=== PATIENT | female | born 1990 | race Two or more races ===

== ENCOUNTER 2023-03-16 03:13 | Inpatient (IN) | payer MEDICAID ==
[~2023-03-16] VITALS: Ht 154.9 cm; Wt 102.2 kg
[2023-03-16] MEDS: ONDANSETRON HCL 4 MG/2 ML VIAL IVP ONE ×2 (03:30→04:13)
[2023-03-16] MEDS ORDERED: SODIUM CHLORIDE 0.9% 1,000 ML IV ONE (03:30)
[2023-03-16 03:35] LABS: BASOPHILS % (AUTO) 0.6 % (0.0-2.0); EOSINOPHILS % (AUTO) 3.7 % (1.0-6.0); HEMATOCRIT 39.2 % (36-46); HEMOGLOBIN 13.1 g/dL (12.0-16.0); LYMPHOCYTES % (AUTO) 20.5 % (22.0-44.0); MEAN CORPUSCULAR HEMOGLOBIN 27.6 pg (26.0-34.0); MEAN CORPUSCULAR HGB CONC 33.5 G/dL (31.0-37.0); MEAN CORPUSCULAR VOLUME 83 fL (80-100); MONOCYTES % (AUTO) 9.8 % (2.0-9.0); NEUTROPHILS # (AUTO) 6.4 K/uL (1.8-7.7); NEUTROPHILS % (AUTO) 65.4 % (40.0-70.0); PLATELET COUNT (AUTO) 371 K/uL (150-450); RED BLOOD CELL COUNT(AUTO) 4.75 MIL/uL (4.00-5.20); RED CELL DISTRIBUTION WIDTH 14.7 % (11.5-14.5); WHITE BLOOD COUNT (AUTO) 9.9 K/uL (4.5-11.0)
[2023-03-16 03:41] LABS: ANION GAP 13 mmol/L (8-16); CALCIUM, TOTAL 8.8 mg/dL (8.8-10.5); CARBON DIOXIDE 24 mmol/L (22-29); CHLORIDE 103 mmol/L (98-107); CREATININE 0.77 mg/dL (0.60-1.30); GLOMERULAR FILTR. RATE CALC > 60 mL/min (>60); GLUCOSE,RANDOM 75 mg/dL (70-110); POTASSIUM 3.3 mmol/L (3.5-5.1); SODIUM SERUM 140 mmol/L (136-145); UREA NITROGEN, BLOOD 11 mg/dL (7-18)
[2023-03-16 03:46] LABS: ALCOHOL, BLOOD (SERUM) 52 mg/dL (0-10); INR 1.1 (0.9-1.1); PROTHROMBIN TIME 11.3 SEC (9.4-11.6)
[2023-03-16 03:48] LABS: LACTIC ACID 1.9 mmol/L (0.4-2.0); TROPONIN I-HIGH SENSITIVITY 5 ng/L (<51)
[2023-03-16 03:54] LABS: SALICYLATE 1.3 mg/dL (2.8-20.0)
[2023-03-16 04:00] LABS: AMMONIA 12 umol/L (11-32)
[2023-03-16 04:03] LABS: ALANINE AMINOTRANSFERASE 36 U/L (12-78); ALBUMIN 3.6 g/dL (3.4-5.0); ALKALINE PHOSPHATASE 77 U/L (46-116); ASPARTATE AMINOTRANSFERASE 29 U/L (15-37); BILIRUBIN,TOTAL 0.2 mg/dL (0.1-1.0); CREATINE KINASE, TOTAL ONLY 116 U/L (26-192); PHOSPHORUS 3.2 mg/dL (2.5-4.9); TOTAL PROTEIN, SERUM 7.8 g/dL (6.4-8.2)
[2023-03-16 04:05] LABS: ACETAMINOPHEN < 2 mcg/mL (10-30); B-TYPE NATRIURETIC PEPTIDE 7 pg/mL (0-100)
[2023-03-16] MEDS ORDERED: 0.9% SODIUM CHLORIDE 10 ML SYRINGE IVP PRN (04:30)
[2023-03-16] MEDS ORDERED: ONDANSETRON HCL 4 MG/2 ML VIAL IVP ONE (06:00)
[2023-03-16] MEDS ORDERED: ACETAMINOPHEN 325 MG TABLET PO PRN (06:15)
[2023-03-16 07:20] LABS: COVID AG,FIA SOURCE NASAL SWAB
[2023-03-16 07:41] LABS: SARS-COV2 (COVID) ANTIGEN,FIA Negative (Negative)
[2023-03-16] MEDS: SODIUM CHLORIDE 0.9% 1,000 ML IV SCH (08:34)
[2023-03-16 09:49] LABS: ALANINE AMINOTRANSFERASE 38 U/L (12-78); ALBUMIN 3.5 g/dL (3.4-5.0); ALKALINE PHOSPHATASE 73 U/L (46-116); ANION GAP 11 mmol/L (8-16); ASPARTATE AMINOTRANSFERASE 39 U/L (15-37); BILIRUBIN,TOTAL 0.3 mg/dL (0.1-1.0); CALCIUM, TOTAL 8.5 mg/dL (8.8-10.5); CARBON DIOXIDE 25 mmol/L (22-29); CHLORIDE 104 mmol/L (98-107); CREATININE 0.84 mg/dL (0.60-1.30); GLOMERULAR FILTR. RATE CALC > 60 mL/min (>60); GLUCOSE,RANDOM 103 mg/dL (70-110); PHOSPHORUS 2.8 mg/dL (2.5-4.9); POTASSIUM 3.7 mmol/L (3.5-5.1); SODIUM SERUM 140 mmol/L (136-145); TOTAL PROTEIN, SERUM 7.6 g/dL (6.4-8.2); UREA NITROGEN, BLOOD 10 mg/dL (7-18)
[2023-03-16 11:11] VITALS: BP 149/90; PULSE 102; RESP 19; TEMP 98.3
[2023-03-16 14:55] VITALS: BP 141/82; PULSE 94; RESP 20; TEMP 98
[2023-03-16 17:09] VITALS: PULSE 83
[2023-03-16 20:50] VITALS: BP 141/89; PULSE 89; RESP 20; TEMP 98.9
[2023-03-17 00:20] VITALS: BP 148/84; PULSE 94; RESP 20; TEMP 98
[2023-03-17 04:51] VITALS: BP 131/75; PULSE 85; RESP 20; TEMP 97.9
[2023-03-17 06:00] LABS: BASOPHILS % (AUTO) 0.6 % (0.0-2.0); EOSINOPHILS % (AUTO) 4.5 % (1.0-6.0); HEMOGLOBIN 12.8 g/dL (12.0-16.0); LYMPHOCYTES # (AUTO) 2.2 K/uL (1.0-4.8); LYMPHOCYTES % (AUTO) 23.9 % (22.0-44.0); MEAN CORPUSCULAR HEMOGLOBIN 27.5 pg (26.0-34.0); MEAN CORPUSCULAR HGB CONC 32.8 G/dL (31.0-37.0); MEAN CORPUSCULAR VOLUME 84 fL (80-100); MONOCYTES # (AUTO) 0.9 K/uL (0.1-1.0); MONOCYTES % (AUTO) 9.8 % (2.0-9.0); NEUTROPHILS # (AUTO) 5.6 K/uL (1.8-7.7); NEUTROPHILS % (AUTO) 61.2 % (40.0-70.0); PLATELET COUNT (AUTO) 352 K/uL (150-450); RED BLOOD CELL COUNT(AUTO) 4.65 MIL/uL (4.00-5.20); RED CELL DISTRIBUTION WIDTH 14.7 % (11.5-14.5); WHITE BLOOD COUNT (AUTO) 9.2 K/uL (4.5-11.0)
[2023-03-17 06:16] LABS: ALANINE AMINOTRANSFERASE 24 U/L (12-78); ALBUMIN 3.3 g/dL (3.4-5.0); ALKALINE PHOSPHATASE 67 U/L (46-116); ANION GAP 10 mmol/L (8-16); ASPARTATE AMINOTRANSFERASE 17 U/L (15-37); BILIRUBIN,TOTAL 0.3 mg/dL (0.1-1.0); CALCIUM, TOTAL 8.2 mg/dL (8.8-10.5); CARBON DIOXIDE 26 mmol/L (22-29); CHLORIDE 106 mmol/L (98-107); CREATININE 0.92 mg/dL (0.60-1.30); GLOMERULAR FILTR. RATE CALC > 60 mL/min (>60); GLUCOSE,RANDOM 65 mg/dL (70-110); POTASSIUM 3.5 mmol/L (3.5-5.1); SODIUM SERUM 142 mmol/L (136-145); TOTAL PROTEIN, SERUM 7.4 g/dL (6.4-8.2); UREA NITROGEN, BLOOD 9 mg/dL (7-18)
[2023-03-17] MEDS: HEPARIN SODIUM,PORCINE 5,000 UNITS/ML VIAL SQ SCH ×3 (08:00→23:26)
[2023-03-17 08:11] VITALS: BP 122/70; PULSE 83; RESP 19; TEMP 98
[2023-03-17] MEDS: SODIUM CHLORIDE 0.9% 1,000 ML IV SCH ×2 (08:41→08:42)
[2023-03-17 11:11] VITALS: BP 116/62; PULSE 84; RESP 18; TEMP 98.3
[2023-03-17 15:50] VITALS: BP 121/72; PULSE 85; RESP 20; TEMP 98
[2023-03-17 20:12] VITALS: BP 130/70; PULSE 82; RESP 20; TEMP 98.4
[2023-03-18] MEDS: SODIUM CHLORIDE 0.9% 1,000 ML IV SCH ×2 (00:05→15:27)
[2023-03-18] MEDS: HEPARIN SODIUM,PORCINE 5,000 UNITS/ML VIAL SQ SCH ×3 (00:09→16:00)
[2023-03-18 05:02] VITALS: BP 115/68; PULSE 81; RESP 20; TEMP 97.8
[2023-03-18 07:09] VITALS: BP 122/74; PULSE 84; RESP 20; TEMP 98.2
[2023-03-18 15:13] VITALS: BP 124/76; PULSE 86; RESP 20; TEMP 98.2
[2023-03-18] MEDS ORDERED: BISACODYL 10 MG RECTAL RECTAL SUPPOSITORY PR ONE (16:00)
== END 2023-03-18 19:18 | disposition home or self-care (01) | DRG 817 ==
LOC: EMS 03:19 → 5S 10:05 → 6S 03-17 18:45
PROVIDERS: ADMIT Hospitalist; ATTEND Hospitalist
DX: T39.312A Poisoning by propionic acid derivatives, intentional self-harm, initial encounter (principal); G92.8 Other toxic encephalopathy; R45.851 Suicidal ideations; F31.4 Bipolar disorder, current episode depressed, severe, without psychotic features; Z20.822 Contact with and (suspected) exposure to COVID-19; R10.13 Epigastric pain; T45.0X2A Poisoning by antiallergic and antiemetic drugs, intentional self-harm, initial encounter; Y92.89 Other specified places as the place of occurrence of the external cause; Z81.8 Family history of other mental and behavioral disorders
CPT/HCPCS: 71045; 80053; 82140; 82550; 83605; 83735; 83880; 84100; 84484; 84703; 85025; 85610; 85730; 93005; 99291; G0378; G0480; G0481; J1644; J2405; J7030; 36415-L1; 36415-TC

== ENCOUNTER 2023-03-18 15:26 | Inpatient (IN) | payer MEDICAID ==
[~2023-03-18] VITALS: Ht 152.4 cm; Wt 105.3 kg
[2023-03-18 19:24] VITALS: BP 142/92; PULSE 78; RESP 18
[2023-03-18] MEDS ORDERED: LORazepam 2 MG TABLET PO PRN (20:30)
[2023-03-18] MEDS ORDERED: HALOPERIDOL 5 MG TABLET PO PRN (20:30)
[2023-03-18 22:14] VITALS: BP 138/78; PULSE 69; RESP 18; TEMP 97.7; O2SAT 98
[2023-03-19 09:04] VITALS: BP 125/81; PULSE 78; RESP 20; TEMP 97.7; O2SAT 96
[2023-03-19] MEDS ORDERED: RisperiDONE 2 MG TABLET PO SCH (09:30)
[2023-03-19] MEDS: BuPROPion HCL XL 150 MG ER TABLET PO SCH (09:56)
[2023-03-19] MEDS ORDERED: PETROLATUM,WHITE 28 GM JELLY TP PRN (16:30)
[2023-03-19] MEDS ORDERED: MAGNESIUM HYDROXIDE SUSPENSION 30 ML UDCUP PO PRN (16:30)
[2023-03-19] MEDS ORDERED: GuaiFENesin/D-METHORPHAN [SUGAR-FREE] 200-20MG/10 ML SYRUP UDCUP PO PRN (16:30)
[2023-03-19] MEDS ORDERED: ONDANSETRON HCL 4 MG TABLET PO PRN (16:30)
[2023-03-19] MEDS ORDERED: NICOTINE 14 MG/24 HOUR PATCH TD PRN (16:30)
[2023-03-19] MEDS ORDERED: IBUPROFEN 400 MG TABLET PO PRN (16:30)
[2023-03-19] MEDS ORDERED: DOCUSATE SODIUM 100 MG CAPSULE PO PRN (16:30)
[2023-03-19] MEDS ORDERED: CloNIDine HCL 0.1 MG TABLET PO PRN (16:30)
[2023-03-19] MEDS ORDERED: MAG HYDROX/AL HYDROX/SIMETH ES 30 ML SUSPENSION UDCUP PO PRN (16:30)
[2023-03-19] MEDS ORDERED: LOPERAMIDE HCL 2 MG CAPSULE PO PRN (16:30)
[2023-03-19] MEDS ORDERED: ALBUTEROL SULFATE HFA 90 MCG/PUFF 8 GM INHALER IH PRN (16:30)
[2023-03-19] MEDS ORDERED: ACETAMINOPHEN 325 MG TABLET PO PRN (16:30)
[2023-03-19 20:00] VITALS: BP 129/67; PULSE 77; RESP 18; TEMP 97.7; O2SAT 98
[2023-03-19] MEDS ORDERED: AMITRIPTYLINE HCL 50 MG TABLET PO SCH (21:00)
[2023-03-19] MEDS: ZOLPIDEM TARTRATE 10 MG TABLET PO PRN (21:24)
[2023-03-20 08:25] LABS: HEMOGLOBIN A1C 5.3 % (3.8-5.6)
[2023-03-20 08:34] LABS: THYROID STIMULATING HORMONE 0.58 uIU/mL (0.36-3.74)
[2023-03-20 08:40] VITALS: BP 142/92; PULSE 70; RESP 18; TEMP 97.8; O2SAT 96
[2023-03-20] MEDS: BuPROPion HCL XL 150 MG ER TABLET PO SCH (08:53)
[2023-03-20] MEDS: ZOLPIDEM TARTRATE 10 MG TABLET PO PRN (20:04)
[2023-03-21] MEDS: BuPROPion HCL XL 150 MG ER TABLET PO SCH (08:34)
[2023-03-21] MEDS: LURASIDONE HCL 40 MG TABLET PO SCH (16:49)
[2023-03-21 20:15] VITALS: BP 120/75; PULSE 88; RESP 18; TEMP 98; O2SAT 97
[2023-03-21] MEDS: ZOLPIDEM TARTRATE 10 MG TABLET PO PRN (20:49)
[2023-03-22 08:42] VITALS: BP 128/66; PULSE 87; RESP 17; TEMP 97.3; O2SAT 96
[2023-03-22] MEDS: BuPROPion HCL XL 150 MG ER TABLET PO SCH (09:58)
[2023-03-22] MEDS ORDERED: BENZOCAINE/MENTHOL/ZINC CL 20% 11.9 GM GEL TP PRN (11:45)
[2023-03-22] MEDS: LURASIDONE HCL 40 MG TABLET PO SCH (17:14)
[2023-03-22 20:26] VITALS: BP 117/67; PULSE 85; RESP 17; TEMP 97.8; O2SAT 97
[2023-03-22] MEDS: ZOLPIDEM TARTRATE 10 MG TABLET PO PRN (21:32)
[2023-03-23 08:19] VITALS: BP 105/61; PULSE 62; RESP 18; TEMP 97.8; O2SAT 95
[2023-03-23] MEDS: BuPROPion HCL XL 150 MG ER TABLET PO SCH (09:41)
[2023-03-23] MEDS: LURASIDONE HCL 40 MG TABLET PO SCH (17:06)
[2023-03-23 20:12] VITALS: BP 133/66; PULSE 75; RESP 18; TEMP 97.6; O2SAT 98
[2023-03-23] MEDS: ZOLPIDEM TARTRATE 10 MG TABLET PO PRN (20:53)
[2023-03-23] MEDS: BENZOCAINE/MENTHOL/ZINC CL 20% 11.9 GM GEL TP PRN (22:30)
[2023-03-24 08:43] VITALS: BP 123/70; PULSE 80; RESP 18; TEMP 97.2; O2SAT 97
[2023-03-24] MEDS: BuPROPion HCL XL 150 MG ER TABLET PO SCH (09:43)
[2023-03-24] MEDS: LURASIDONE HCL 40 MG TABLET PO SCH (17:18)
[2023-03-24] MEDS: BENZOCAINE/MENTHOL/ZINC CL 20% 11.9 GM GEL TP PRN (20:50)
[2023-03-24] MEDS: ZOLPIDEM TARTRATE 10 MG TABLET PO PRN (20:50)
[2023-03-24 22:24] VITALS: RESP 17
[2023-03-25] MEDS: BuPROPion HCL XL 150 MG ER TABLET PO SCH (08:38)
[2023-03-25 09:13] VITALS: BP 118/77; PULSE 90; RESP 18; TEMP 98.1; O2SAT 96
[2023-03-25] MEDS: LURASIDONE HCL 40 MG TABLET PO SCH (16:37)
[2023-03-25 20:03] VITALS: BP 123/71; PULSE 82; RESP 18; TEMP 98.2
[2023-03-25] MEDS: ZOLPIDEM TARTRATE 10 MG TABLET PO PRN (20:24)
[2023-03-26 08:31] VITALS: BP 129/83; PULSE 91; RESP 18; TEMP 97.8; O2SAT 98
[2023-03-26] MEDS: BuPROPion HCL XL 150 MG ER TABLET PO SCH (08:49)
[2023-03-26] MEDS: LURASIDONE HCL 40 MG TABLET PO SCH (16:33)
[2023-03-26] MEDS: ZOLPIDEM TARTRATE 10 MG TABLET PO PRN (21:10)
[2023-03-26 21:15] VITALS: BP 136/78; PULSE 84; RESP 19; TEMP 98.1; O2SAT 97
[2023-03-27 08:37] VITALS: BP 113/76; PULSE 85; RESP 17; TEMP 98.4; O2SAT 97
[2023-03-27] MEDS: BuPROPion HCL XL 150 MG ER TABLET PO SCH (08:41)
[2023-03-27] MEDS: TraZODone HCL 50 MG TABLET PO SCH (20:11)
[2023-03-27 20:56] VITALS: BP 113/75; PULSE 80; RESP 18; TEMP 98.1; O2SAT 97
[2023-03-27] MEDS: LURASIDONE HCL 40 MG TABLET PO SCH (21:09)
[2023-03-28] MEDS: BuPROPion HCL XL 150 MG ER TABLET PO SCH (08:45)
[2023-03-28 09:46] VITALS: BP 108/65; PULSE 79; RESP 17; TEMP 97.7; O2SAT 99
[2023-03-28] MEDS: LURASIDONE HCL 40 MG TABLET PO SCH (20:14)
[2023-03-28 20:30] VITALS: BP 116/66; PULSE 77; RESP 18; TEMP 97.9; O2SAT 97
[2023-03-28] MEDS: TraZODone HCL 50 MG TABLET PO SCH (21:00)
[2023-03-29 08:03] VITALS: BP 111/70; PULSE 78; RESP 17; TEMP 97.8; O2SAT 96
[2023-03-29 08:23] VITALS: BP 111/70; PULSE 78; RESP 17; TEMP 97.8; O2SAT 96
[2023-03-29] MEDS: BuPROPion HCL XL 150 MG ER TABLET PO SCH (08:50)
[2023-03-29 16:30] VITALS: BP 118/75; PULSE 88; RESP 18; TEMP 97.6; O2SAT 96
[2023-03-29] MEDS: LURASIDONE HCL 40 MG TABLET PO SCH (20:31)
[2023-03-29] MEDS: TraZODone HCL 50 MG TABLET PO SCH (20:31)
[2023-03-29 22:56] VITALS: BP 118/75; PULSE 88; RESP 18; TEMP 97.6; O2SAT 96
[2023-03-30 08:39] VITALS: BP 120/72; PULSE 87; RESP 18; TEMP 97.9; O2SAT 97
[2023-03-30] MEDS: BuPROPion HCL XL 150 MG ER TABLET PO SCH (09:23)
[2023-03-30] MEDS ORDERED: BUPR-50 PO (11:10)
[2023-03-30] MEDS ORDERED: LURA40TA2 PO (11:11)
[2023-03-30] MEDS ORDERED: TRAZ-252 PO (11:12)
== END 2023-03-30 16:20 | disposition home or self-care (01) | DRG 753 ==
LOC: B2S 20:09
PROVIDERS: ADMIT Psychiatry & Neurology Child & Adolescent Psychiatry; ATTEND Psychiatry & Neurology Psychiatry
DX: F31.4 Bipolar disorder, current episode depressed, severe, without psychotic features (principal); Z91.148 Patient's other noncompliance with medication regimen for other reason; R45.851 Suicidal ideations; F10.10 Alcohol abuse, uncomplicated; F14.10 Cocaine abuse, uncomplicated; F41.9 Anxiety disorder, unspecified; R03.0 Elevated blood-pressure reading, without diagnosis of hypertension; T39.312A Poisoning by propionic acid derivatives, intentional self-harm, initial encounter; T45.0X2A Poisoning by antiallergic and antiemetic drugs, intentional self-harm, initial encounter; Y92.89 Other specified places as the place of occurrence of the external cause; Z79.899 Other long term (current) drug therapy
CPT/HCPCS: 80061; 83036; 84443; 87081